=== PATIENT | female | born 1960 | race Caucasian/White ===

== ENCOUNTER → 2016-10-16 | Outpatient (REF) | payer OTHER | LOC: M LAB REF 10:06 | PROVIDERS: ATTEND Physician Assistant | DX: J02.9 Acute pharyngitis, unspecified (principal) ==

== ENCOUNTER 2017-09-07 08:17 | Inpatient (IN) | payer OTHER ==
[2017-09-07] MEDS: methylPREDNISolone INJ 125 MG/2 ML VIAL (J2930) IV (09:00)
[2017-09-07] MEDS: NS 1,000 ML IV (09:00)
[2017-09-07] MEDS: IPRATROPIUM 0.5MG/ALBUTEROL 2.5MG INH SOL UD 3ML (DUONEB)(J7620) NEB ×6 (09:01→21:06)
[2017-09-07 09:02] LABS: ABG BASE EXCESS 0.8 (-2.0-2.0); ABG HCO3 24.5 MEQ/L (22.0-26.0); ABG O2 SATURATION 93.2 % (95.0-99.0); ABG PARTIAL PRESSURE CO2 36.9 mmHg (35.0-45.0); ABG PARTIAL PRESSURE O2 61.5 mmHg (75.0-100.0); ABG TOTAL CO2 25.6 MEQ/L (22.0-29.0)
[2017-09-07 09:13] LABS: BASO % 0.4 % (0.0-1.0); EOS # 0.5 10^3/uL (0.0-0.50); EOS % 5.9 % (0.0-3.0); HEMATOCRIT 50.8 % (36.0-47.0); HEMOGLOBIN 17.7 g/dl (12.0-16.0); IMMATURE GRANULOCYTE % 0.1 % (0-0); LYMPH # 0.9 10^3/uL (1.5-4.5); LYMPH % 11.7 % (24.0-44.0); MEAN CORPUSCULAR HEMOGLOBIN 33.7 pg (27.0-33.0); MEAN CORPUSCULAR HGB CONC 34.8 g/dl (32.0-36.5); MEAN CORPUSCULAR VOLUME 96.8 fl (80.0-96.0); MONO # 0.5 10^3/uL (0.0-0.8); MONO % 6.4 % (0.0-5.0); NEUTROPHILS # 5.7 10^3/uL (1.8-7.7); NEUTROPHILS % 75.5 % (36.0-66.0); PLATELET COUNT, AUTOMATED 198 10^3/uL (150-450); RED BLOOD COUNT 5.25 10^6/uL (4.00-5.40); RED CELL DISTRIBUTION WIDTH 12.7 % (11.5-14.5); WHITE BLOOD COUNT 7.6 10^3/uL (4.0-10.0)
[2017-09-07 09:27] LABS: ALBUMIN 3.8 GM/DL (3.2-5.2); ALBUMIN/GLOBULIN RATIO 1.12 (1.00-1.93); ALKALINE PHOSPHATASE 103 U/L (45-117); ALT/SGPT 18 U/L (12-78); ANION GAP 11 MEQ/L (8-16); AST/SGOT 22 U/L (7-37); BILIRUBIN,DIRECT 0.2 MG/DL (0.0-0.2); BILIRUBIN,TOTAL 0.5 MG/DL (0.2-1.0); BLOOD UREA NITROGEN 5 MG/DL (7-18); CALCIUM LEVEL 8.7 MG/DL (8.5-10.1); CARBON DIOXIDE LEVEL 24 MEQ/L (21-32); CHLORIDE LEVEL 102 MEQ/L (98-107); CPK CREATINE PHOSPHOKINASE 82 U/L (26-192); CREATININE FOR GFR 0.69 MG/DL (0.55-1.02); GLOMERULAR FILTRATION RATE > 60.0 (>51); GLUCOSE, FASTING 104 MG/DL (70-100); POTASSIUM SERUM 3.3 MEQ/L (3.5-5.1); SODIUM LEVEL 137 MEQ/L (136-145); TOTAL PROTEIN 7.2 GM/DL (6.4-8.2); TROPONIN I < 0.02 NG/ML (< 0.10)
[2017-09-07 09:33] LABS: CK-MB VALUE MASS 2.7 NG/ML (0.0-3.6); MB/CK RELATIVE INDEX 3.29 (< OR =4); NT-PRO BNP 86 PG/ML (<125)
[2017-09-07] MEDS: ALBUTEROL SULFATE 2.5 MG/0.5 ML INH NEB SOLN NEB (10:13)
[2017-09-07] MEDS: MOXIFLOXACIN HCL 400 MG in APPROPRIATE DILUENT 1 EA IV (10:47)
[2017-09-07 11:15] LABS: D-DIMER QUANT < 270.0 ng/ml (<500)
[2017-09-07] MEDS ORDERED: ONDANSETRON 4MG/2ML VIAL (J2405) IV (11:45)
[2017-09-07] MEDS ORDERED: LEVALBUTEROL 1.25 MG/0.5 ML CONCENTRATE NEB INH (11:45)
[2017-09-07] MEDS ORDERED: ACETAMINOPHEN TAB 650MG DOSE (2X325MG) PO (11:45)
[2017-09-07] MEDS: POTASSIUM CHLORIDE 10 MEQ SR TABLET PO (12:28)
[2017-09-07] MEDS: POTASSIUM CHL PWD 20 MEQ PACKET PO (13:46)
[2017-09-07] MEDS: NICOTINE 14 MG/24 HR TRANSDERMAL TD (14:00)
[2017-09-07] MEDS ORDERED: INFLUENZA QUADRIVALENT PF VACCINE 0.5ML SYRINGE (90686) IM (14:15)
[2017-09-07 14:46] LABS: CPK CREATINE PHOSPHOKINASE 87 U/L (26-192); MB/CK RELATIVE INDEX 4.59 (< OR =4); TROPONIN I < 0.02 NG/ML (< 0.10)
[2017-09-07] MEDS ORDERED: SLF 3 ML SYR IV (17:00)
[2017-09-07] MEDS: SODIUM CHLORIDE 0.9% 1000 ML IV (19:30)
[2017-09-07] MEDS: methylPREDNISolone INJ 40 MG/1 ML VIAL (J2920) IV (21:00)
[2017-09-07] MEDS: SLF 3 ML SYR IV (21:22)
[2017-09-08 01:34] LABS: TROPONIN I < 0.02 NG/ML (< 0.10)
[2017-09-08 01:37] LABS: CK-MB VALUE MASS 3.4 NG/ML (0.0-3.6); CPK CREATINE PHOSPHOKINASE 80 U/L (26-192); MB/CK RELATIVE INDEX 4.25 (< OR =4)
[2017-09-08] MEDS: SLF 3 ML SYR IV ×3 (05:02→20:38)
[2017-09-08] MEDS: IPRATROPIUM 0.5MG/ALBUTEROL 2.5MG INH SOL UD 3ML (DUONEB)(J7620) NEB ×4 (07:10→20:02)
[2017-09-08 08:27] LABS: BASO % 0.1 % (0.0-1.0); EOS % 0.1 % (0.0-3.0); HEMATOCRIT 43.6 % (36.0-47.0); IMMATURE GRANULOCYTE # 0.1 10^3/uL (0-0); IMMATURE GRANULOCYTE % 0.5 % (0-0); LYMPH % 6.8 % (24.0-44.0); MEAN CORPUSCULAR HEMOGLOBIN 33.6 pg (27.0-33.0); MEAN CORPUSCULAR HGB CONC 33.9 g/dl (32.0-36.5); MEAN CORPUSCULAR VOLUME 98.9 fl (80.0-96.0); MONO # 1.1 10^3/uL (0.0-0.8); MONO % 7.2 % (0.0-5.0); NEUTROPHILS # 12.8 10^3/uL (1.8-7.7); NEUTROPHILS % 85.3 % (36.0-66.0); PLATELET COUNT, AUTOMATED 188 10^3/uL (150-450); RED BLOOD COUNT 4.41 10^6/uL (4.00-5.40); RED CELL DISTRIBUTION WIDTH 13.5 % (11.5-14.5)
[2017-09-08 08:31] LABS: HEMOGLOBIN 14.8 g/dl (12.0-16.0)
[2017-09-08 08:49] LABS: ALBUMIN/GLOBULIN RATIO 0.91 (1.00-1.93); ALKALINE PHOSPHATASE 73 U/L (45-117); ALT/SGPT 13 U/L (12-78); ANION GAP 5 MEQ/L (8-16); AST/SGOT 16 U/L (7-37); BILIRUBIN,TOTAL 0.4 MG/DL (0.2-1.0); BLOOD UREA NITROGEN 10 MG/DL (7-18); CALCIUM LEVEL 8.4 MG/DL (8.5-10.1); CARBON DIOXIDE LEVEL 28 MEQ/L (21-32); CHLORIDE LEVEL 110 MEQ/L (98-107); GLOMERULAR FILTRATION RATE > 60.0 (>51); GLUCOSE, FASTING 105 MG/DL (70-100); POTASSIUM SERUM 3.9 MEQ/L (3.5-5.1); SODIUM LEVEL 143 MEQ/L (136-145); TOTAL PROTEIN 6.3 GM/DL (6.4-8.2)
[2017-09-08] MEDS: ASPIRIN ENTERIC 325 MG TAB PO (09:11)
[2017-09-08] MEDS: methylPREDNISolone INJ 40 MG/1 ML VIAL (J2920) IV ×2 (09:12→20:38)
[2017-09-08] MEDS: ENOXAPARIN 30 MG/0.3 ML SYR (J1650) SC (09:12)
[2017-09-08] MEDS: guaiFENesin ER 600 MG TAB PO ×3 (09:12→20:38)
[2017-09-08] MEDS ORDERED: MOXIFLOXACIN HCL 400 MG in APPROPRIATE DILUENT 1 EA IV (11:00)
[2017-09-08] MEDS: CEFTRIAXONE SOD 1 GM in APPROPRIATE DILUENT 1 EA IV (11:38)
[2017-09-09 04:25] LABS: HEMATOCRIT 43.7 % (36.0-47.0); HEMOGLOBIN 14.4 g/dl (12.0-16.0); PLATELET COUNT, AUTOMATED 182 10^3/uL (150-450); RED BLOOD COUNT 4.37 10^6/uL (4.00-5.40); RED CELL DISTRIBUTION WIDTH 13.6 % (11.5-14.5); WHITE BLOOD COUNT 11.5 10^3/uL (4.0-10.0)
[2017-09-09 04:44] LABS: ANION GAP 5 MEQ/L (8-16); BLOOD UREA NITROGEN 14 MG/DL (7-18); C REACTIVE PROTEIN QUANTITATIV < 0.30 MG/DL (0.00-0.30); CALCIUM LEVEL 8.2 MG/DL (8.5-10.1); CARBON DIOXIDE LEVEL 29 MEQ/L (21-32); CHLORIDE LEVEL 108 MEQ/L (98-107); CREATININE FOR GFR 0.57 MG/DL (0.55-1.02); GLOMERULAR FILTRATION RATE > 60.0 (>51); GLUCOSE, FASTING 119 MG/DL (70-100); POTASSIUM SERUM 4.9 MEQ/L (3.5-5.1); SODIUM LEVEL 142 MEQ/L (136-145)
[2017-09-09] MEDS: SLF 3 ML SYR IV ×3 (05:26→22:00)
[2017-09-09] MEDS: IPRATROPIUM 0.5MG/ALBUTEROL 2.5MG INH SOL UD 3ML (DUONEB)(J7620) NEB ×4 (07:57→20:40)
[2017-09-09] MEDS: ASPIRIN ENTERIC 325 MG TAB PO (09:04)
[2017-09-09] MEDS: guaiFENesin ER 600 MG TAB PO ×2 (09:04→20:32)
[2017-09-09] MEDS: ENOXAPARIN 30 MG/0.3 ML SYR (J1650) SC (09:04)
[2017-09-09] MEDS: methylPREDNISolone INJ 40 MG/1 ML VIAL (J2920) IV (09:04)
[2017-09-09] MEDS ORDERED: MOM 30ML SUSPENSION UDC PO (09:15)
[2017-09-09] MEDS: CEFTRIAXONE SOD 1 GM in APPROPRIATE DILUENT 1 EA IV (10:37)
[2017-09-09] MEDS: predniSONE 20 MG TAB PO (10:38)
[2017-09-09] MEDS: DOCUSATE SODIUM 100 MG CAP PO (10:38)
[2017-09-09] MEDS: NICOTINE 21MG/24HR 1 EA TRANSDERMAL TD (11:17)
[2017-09-10 05:38] LABS: HEMATOCRIT 46.6 % (36.0-47.0); HEMOGLOBIN 15.5 g/dl (12.0-16.0); MEAN CORPUSCULAR HEMOGLOBIN 33.1 pg (27.0-33.0); MEAN CORPUSCULAR HGB CONC 33.3 g/dl (32.0-36.5); MEAN CORPUSCULAR VOLUME 99.6 fl (80.0-96.0); PLATELET COUNT, AUTOMATED 179 10^3/uL (150-450); RED BLOOD COUNT 4.68 10^6/uL (4.00-5.40); RED CELL DISTRIBUTION WIDTH 13.6 % (11.5-14.5); WHITE BLOOD COUNT 9.3 10^3/uL (4.0-10.0)
[2017-09-10 05:56] LABS: ANION GAP 5 MEQ/L (8-16); BLOOD UREA NITROGEN 12 MG/DL (7-18); C REACTIVE PROTEIN QUANTITATIV < 0.30 MG/DL (0.00-0.30); CALCIUM LEVEL 8.4 MG/DL (8.5-10.1); CARBON DIOXIDE LEVEL 27 MEQ/L (21-32); CHLORIDE LEVEL 110 MEQ/L (98-107); CREATININE FOR GFR 0.63 MG/DL (0.55-1.02); GLOMERULAR FILTRATION RATE > 60.0 (>51); GLUCOSE, FASTING 82 MG/DL (70-100); POTASSIUM SERUM 3.9 MEQ/L (3.5-5.1); SODIUM LEVEL 142 MEQ/L (136-145)
[2017-09-10] MEDS: SLF 3 ML SYR IV (06:00)
[2017-09-10] MEDS: IPRATROPIUM 0.5MG/ALBUTEROL 2.5MG INH SOL UD 3ML (DUONEB)(J7620) NEB (07:04)
[2017-09-10] MEDS: ASPIRIN ENTERIC 325 MG TAB PO (07:41)
[2017-09-10] MEDS: CEFUROXIME 500 MG TAB PO (07:41)
[2017-09-10] MEDS: predniSONE 20 MG TAB PO (07:41)
[2017-09-10] MEDS: DOCUSATE SODIUM 100 MG CAP PO (07:41)
[2017-09-10] MEDS: guaiFENesin ER 600 MG TAB PO (07:41)
[2017-09-10] MEDS: NICOTINE 21MG/24HR 1 EA TRANSDERMAL TD (07:42)
[2017-09-10] MEDS: ENOXAPARIN 30 MG/0.3 ML SYR (J1650) SC (07:42)
[2017-09-11 10:06] LABS: FOLATE 3.5 NG/ML (>5.4)
[2017-09-11 10:06] LABS: VITAMIN B12 LEVEL 160 PG/ML (247-911)
== END 2017-09-10 11:59 | disposition home or self-care (01) | DRG 192 ==
LOC: M MSPAV 09-09 15:05 → M ED 08:17 → M ED INP 11:32 → M PCU 16:32
DX: J44.1 Chronic obstructive pulmonary disease with (acute) exacerbation (principal); J44.0 Chronic obstructive pulmonary disease with (acute) lower respiratory infection; J20.9 Acute bronchitis, unspecified; M81.0 Age-related osteoporosis without current pathological fracture; D53.9 Nutritional anemia, unspecified; F17.210 Nicotine dependence, cigarettes, uncomplicated; Z79.82 Long term (current) use of aspirin; Z79.899 Other long term (current) drug therapy; Z88.2 Allergy status to sulfonamides

== ENCOUNTER 2017-10-23 08:27 | Emergency (ER) | payer OTHER ==
[2017-10-23] MEDS: methylPREDNISolone INJ 125 MG/2 ML VIAL (J2930) IV (08:57)
[2017-10-23] MEDS: IPRATROPIUM 0.5MG/ALBUTEROL 2.5MG INH SOL UD 3ML (DUONEB)(J7620) NEB (08:57)
[2017-10-23 09:13] LABS: BASO % 0.3 % (0.0-1.0); EOS # 0.3 10^3/uL (0.0-0.50); EOS % 4.3 % (0.0-3.0); HEMATOCRIT 48.3 % (36.0-47.0); HEMOGLOBIN 16.5 g/dl (12.0-16.0); IMMATURE GRANULOCYTE % 0.4 % (0-3.0); LYMPH # 1.1 10^3/uL (1.5-4.5); LYMPH % 13.9 % (24.0-44.0); MEAN CORPUSCULAR HGB CONC 34.2 g/dl (32.0-36.5); MEAN CORPUSCULAR VOLUME 96.6 fl (80.0-96.0); MONO # 0.6 10^3/uL (0.0-0.8); MONO % 7.8 % (0.0-5.0); NEUTROPHILS # 5.9 10^3/uL (1.8-7.7); NEUTROPHILS % 73.3 % (36.0-66.0); PLATELET COUNT, AUTOMATED 196 10^3/uL (150-450); RED CELL DISTRIBUTION WIDTH 13.7 % (11.5-14.5)
[2017-10-23 09:34] LABS: ANION GAP 9 MEQ/L (8-16); BLOOD UREA NITROGEN 5 MG/DL (7-18); CALCIUM LEVEL 8.8 MG/DL (8.5-10.1); CARBON DIOXIDE LEVEL 29 MEQ/L (21-32); CHLORIDE LEVEL 105 MEQ/L (98-107); CREATININE FOR GFR 0.75 MG/DL (0.55-1.30); GLOMERULAR FILTRATION RATE > 60.0 (>51); GLUCOSE, FASTING 98 MG/DL (70-100); POTASSIUM SERUM 3.2 MEQ/L (3.5-5.1); SODIUM LEVEL 143 MEQ/L (136-145)
[2017-10-23] MEDS ORDERED: ISOVUE-370 76% 100ML VIAL (Q9967) As Ordered (09:34)
[2017-10-23 09:36] LABS: LACTIC ACID SEPSIS PROTOCOL 1.5 MMOL/L (0.4-2.0)
[2017-10-23 09:39] LABS: ALBUMIN 3.4 GM/DL (3.2-5.2); ALBUMIN/GLOBULIN RATIO 0.97 (1.00-1.93); ALKALINE PHOSPHATASE 103 U/L (45-117); ALT/SGPT 16 U/L (12-78); AST/SGOT 19 U/L (7-37); BILIRUBIN,DIRECT 0.2 MG/DL (0.0-0.2); BILIRUBIN,TOTAL 0.6 MG/DL (0.2-1.0); NT-PRO BNP 112 PG/ML (<125); TOTAL PROTEIN 6.9 GM/DL (6.4-8.2)
== END 2017-10-23 11:16 | disposition home or self-care (01) ==
LOC: M ED 08:27
DX: J44.1 Chronic obstructive pulmonary disease with (acute) exacerbation (principal); R91.8 Other nonspecific abnormal finding of lung field; Z79.82 Long term (current) use of aspirin; Z79.899 Other long term (current) drug therapy; Z87.891 Personal history of nicotine dependence; Z88.1 Allergy status to other antibiotic agents; Z88.2 Allergy status to sulfonamides
CPT/HCPCS: Q9967

== ENCOUNTER → 2017-12-13 | Outpatient (CLI) | payer OTHER | LOC: M WUC 09:05 | DX: M79.671 Pain in right foot (principal) | CPT/HCPCS: 73630 ==

== ENCOUNTER → 2018-07-09 | Outpatient (CLI) | payer OTHER ==
[2018-07-09 12:43] LABS: BASO % 0.4 % (0.0-1.0); EOS # 0.1 10^3/uL (0.0-0.50); EOS % 1.8 % (0.0-3.0); HEMATOCRIT 41.9 % (36.0-47.0); HEMOGLOBIN 14.2 g/dl (12.0-15.5); IMMATURE GRANULOCYTE % 0.3 % (0-3.0); LYMPH # 1.4 10^3/uL (1.5-4.5); LYMPH % 18.4 % (24.0-44.0); MEAN CORPUSCULAR HEMOGLOBIN 33.8 pg (27.0-33.0); MEAN CORPUSCULAR HGB CONC 33.9 g/dl (32.0-36.5); MEAN CORPUSCULAR VOLUME 99.8 fl (80.0-96.0); MONO # 0.6 10^3/uL (0.0-0.8); MONO % 7.8 % (0.0-5.0); NEUTROPHILS # 5.4 10^3/uL (1.8-7.7); NEUTROPHILS % 71.3 % (36.0-66.0); PLATELET COUNT, AUTOMATED 210 10^3/uL (150-450); RED CELL DISTRIBUTION WIDTH 13.8 % (11.5-14.5); WHITE BLOOD COUNT 7.6 10^3/uL (4.0-10.0)
[2018-07-09 13:04] LABS: ALBUMIN 3.6 GM/DL (3.2-5.2); ALBUMIN/GLOBULIN RATIO 1.24 (1.00-1.93); ALKALINE PHOSPHATASE 92 U/L (45-117); ALT/SGPT 18 U/L (12-78); ANION GAP 8 MEQ/L (8-16); AST/SGOT 22 U/L (7-37); BILIRUBIN,TOTAL 0.8 MG/DL (0.2-1.0); BLOOD UREA NITROGEN 6 MG/DL (7-18); CALCIUM LEVEL 9.4 MG/DL (8.5-10.1); CARBON DIOXIDE LEVEL 30 MEQ/L (21-32); CHLORIDE LEVEL 104 MEQ/L (98-107); CHOLESTEROL LEVEL 174 MG/DL (<200); CHOLESTEROL RISK RATIO 2.047 (<5); CREATININE FOR GFR 0.73 MG/DL (0.55-1.30); GLOMERULAR FILTRATION RATE > 60.0 (>51); GLUCOSE, FASTING 89 MG/DL (70-100); HDL CHOLESTEROL 85 MG/DL (>40); LDL CHOLESTEROL 72 MG/DL (<100); NON-HDL-C 89 MG/DL; POTASSIUM SERUM 3.6 MEQ/L (3.5-5.1); SODIUM LEVEL 142 MEQ/L (136-145); TOTAL 25(OH) VITAMIN D 44.4 NG/ML (30.0-100.0); TOTAL PROTEIN 6.5 GM/DL (6.4-8.2); TRIGLYCERIDES LEVEL 85 MG/DL (<150)
== END ==
LOC: M WUC 09:53
DX: J44.9 Chronic obstructive pulmonary disease, unspecified (principal); E55.9 Vitamin D deficiency, unspecified; Z13.220 Encounter for screening for lipoid disorders
CPT/HCPCS: 80053

== ENCOUNTER → 2019-01-21 | Outpatient (CLI) | payer OTHER ==
[~2019-01-21] MED LIST: ASPI-1 PO; ASPI-222 PO; CALCTAB74 PO; Cefuroxime Axetil PO; DOXY100C37 PO; FULLMIS XX; IPRA0.00 NEB; NICO21PAT TD; PRED20TA PO; PROAAER10; PROAAER10 INH; SPIR1AER; SPIR1AER INH
[2019-01-21 13:34] LABS: BASO % 0.5 % (0.0-1.0); EOS # 0.2 10^3/uL (0.0-0.50); EOS % 2.3 % (0.0-3.0); HEMATOCRIT 48.8 % (36.0-47.0); HEMOGLOBIN 16.2 g/dl (12.0-15.5); LYMPH # 1.2 10^3/uL (1.5-4.5); LYMPH % 17.9 % (24.0-44.0); MEAN CORPUSCULAR HEMOGLOBIN 34.5 pg (27.0-33.0); MEAN CORPUSCULAR HGB CONC 33.2 g/dl (32.0-36.5); MEAN CORPUSCULAR VOLUME 104.1 fl (80.0-96.0); MONO # 0.5 10^3/uL (0.0-0.8); MONO % 7.4 % (0.0-5.0); NEUTROPHILS # 4.6 10^3/uL (1.8-7.7); NEUTROPHILS % 71.6 % (36.0-66.0); PLATELET COUNT, AUTOMATED 183 10^3/uL (150-450); RED BLOOD COUNT 4.69 10^6/uL (4.00-5.40); WHITE BLOOD COUNT 6.5 10^3/uL (4.0-10.0)
[2019-01-21 13:50] LABS: ALBUMIN 3.3 GM/DL (3.2-5.2); ALT/SGPT 22 U/L (12-78); BILIRUBIN,TOTAL 0.7 MG/DL (0.2-1.0); BLOOD UREA NITROGEN 9 MG/DL (7-18); CALCIUM LEVEL 8.4 MG/DL (8.5-10.1); CARBON DIOXIDE LEVEL 31 MEQ/L (21-32); CHLORIDE LEVEL 104 MEQ/L (98-107); CREATININE FOR GFR 0.66 MG/DL (0.55-1.30); GLOMERULAR FILTRATION RATE > 60.0 (>51); GLUCOSE, FASTING 75 MG/DL (70-100); POTASSIUM SERUM 3.7 MEQ/L (3.5-5.1); SODIUM LEVEL 141 MEQ/L (136-145); TOTAL 25(OH) VITAMIN D 29.5 NG/ML (30.0-100.0); TOTAL PROTEIN 6.4 GM/DL (6.4-8.2)
== END ==
LOC: M WUC 09:25
PROVIDERS: ATTEND Nurse Practitioner Family
DX: J44.9 Chronic obstructive pulmonary disease, unspecified (principal); E55.9 Vitamin D deficiency, unspecified

== ENCOUNTER → 2019-03-26 | Outpatient (CLI) | payer OTHER ==
--- NOTE | 2019-03-27 08:27 | REP ---
REASON: Dyspnea. COMPARISON: 10/23/2017 The lung gerardo are hyperexpanded status quo. No acute patchy parenchymal opacities or pleural effusions have developed. Bilateral upper lobe bullous emphysematous changes are suspected. Since the last examination, multiple left-sided healed rib fractures have developed. The heart is not enlarged. IMPRESSION: Marked chronic lung field changes essentially stable from the latest prior as described above. Electronically Signed by Olvin Norris DO 03/27/2019 09:46 A
== END ==
LOC: M WUC 13:40
PROVIDERS: ATTEND Nurse Practitioner Family
DX: R06.02 Shortness of breath (principal)

== ENCOUNTER 2019-07-08 07:55 | Emergency (ER) | payer OTHER ==
[~2019-07-08 07:55] MED LIST changes: -ASPI-222 PO; +ASPI-527 PO
[2019-07-08] MEDS ORDERED: ARNU1INH3 INH (08:19)
[2019-07-08] MEDS ORDERED: ANOR1AER INH (08:19)
[2019-07-08 08:44] LABS: VENOUS BASE EXCESS 3.5 (-2.0-2.0); VENOUS HCO3 29.8 MEQ/L (23.0-27.0); VENOUS O2 SATURATION 80.8 % (60.0-80.0); VENOUS PARTIAL PRESSURE CO2 50.2 mmHg (38.0-50.0); VENOUS PARTIAL PRESSURE O2 45.2 mmHg (30.0-50.0); VENOUS PH 7.391 UNITS (7.330-7.430); VENOUS STANDARD HCO3 27.1 MEQ/L; VENOUS TOTAL CO2 31.3 MEQ/L (24.0-28.0)
--- NOTE | 2019-07-08 08:46 | REP ---
Clinical: Cough and dyspnea. Comparison: 03/26/2019. Findings: Advanced COPD/emphysematous changes are appreciated. Superimposed right lower lobe atelectasis noted. No obvious effusion. No pneumothorax. Mediastinum and cardiac silhouette stable. Skeletal structures demonstrate age-related osteopenia. Impression: Advanced COPD/emphysematous changes. Subtle right lower lobe atelectasis. Electronically Signed by Gus Bynum MD 07/08/2019 08:37 A
[2019-07-08 08:52] LABS: BASO % 0.2 % (0.0-1.0); EOS # 0.1 10^3/uL (0.0-0.5); EOS % 2.2 % (0.0-3.0); HEMATOCRIT 48.9 % (36.0-47.0); HEMOGLOBIN 16.4 g/dl (12.0-15.5); LYMPH # 0.9 10^3/uL (1.5-5.0); LYMPH % 14.7 % (24.0-44.0); MEAN CORPUSCULAR HEMOGLOBIN 33.9 pg (27.0-33.0); MEAN CORPUSCULAR HGB CONC 33.5 g/dl (32.0-36.5); MONO # 0.7 10^3/uL (0.0-0.8); MONO % 10.8 % (0.0-5.0); NEUTROPHILS # 4.5 10^3/uL (1.5-8.5); NEUTROPHILS % 71.6 % (36.0-66.0); PLATELET COUNT, AUTOMATED 174 10^3/uL (150-450); RED BLOOD COUNT 4.84 10^6/uL (4.00-5.40); WHITE BLOOD COUNT 6.3 10^3/uL (4.0-10.0)
[2019-07-08 08:55] LABS: INR 0.95; PROTHROMBIN TIME 12.4 SECONDS (11.8-14.0)
[2019-07-08 09:28] LABS: ALBUMIN 3.3 GM/DL (3.2-5.2); ALT/SGPT 20 U/L (12-78); BILIRUBIN,DIRECT 0.2 MG/DL (0.0-0.2); BILIRUBIN,TOTAL 0.8 MG/DL (0.2-1.0); BLOOD UREA NITROGEN 6 MG/DL (7-18); CALCIUM LEVEL 9.7 MG/DL (8.5-10.1); CARBON DIOXIDE LEVEL 31 MEQ/L (21-32); CHLORIDE LEVEL 105 MEQ/L (98-107); CK-MB VALUE MASS < 1.0 NG/ML (<3.6); CPK CREATINE PHOSPHOKINASE 61 U/L (26-192); CREATININE FOR GFR 0.75 MG/DL (0.55-1.30); GLOMERULAR FILTRATION RATE > 60.0 (>51); GLUCOSE, FASTING 90 MG/DL (70-100); MB/CK RELATIVE INDEX 1.64 (< OR =4); NT-PRO BNP 76 PG/ML (<125); POTASSIUM SERUM 3.1 MEQ/L (3.5-5.1); SODIUM LEVEL 142 MEQ/L (136-145); TOTAL PROTEIN 7.2 GM/DL (6.4-8.2); TROPONIN I < 0.02 NG/ML (< 0.10)
[2019-07-08] MEDS ORDERED: NS 500 ML IV ONE (09:30)
[2019-07-08] MEDS ORDERED: IPRATROPIUM 0.5MG/ALBUTEROL 2.5MG INH SOL UD 3ML (DUONEB)(J7620) NEB ONE (09:45)
[2019-07-08] MEDS ORDERED: POTASSIUM CHLORIDE 10 MEQ SR TABLET PO ONE (09:45)
[2019-07-08] MEDS ORDERED: LEVA1TAB2 PO (12:16)
[2019-07-08] MEDS ORDERED: PRED20TA PO (12:17)
[2019-07-08] MEDS ORDERED: MUCI60TA7 PO (12:17)
[2019-07-08 12:47] VITALS: BP 120/58
--- NOTE | 2019-07-08 19:31 | ECGEPIP ---
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
== END 2019-07-08 13:00 | disposition home or self-care (01) ==
LOC: M ED 07:55 → EDBD 07:55 → M ED 13:00
DX: J44.1 Chronic obstructive pulmonary disease with (acute) exacerbation (principal); J40 Bronchitis, not specified as acute or chronic; F17.200 Nicotine dependence, unspecified, uncomplicated; Z99.81 Dependence on supplemental oxygen; Z88.2 Allergy status to sulfonamides; Z79.899 Other long term (current) drug therapy; Z79.51 Long term (current) use of inhaled steroids; Z79.82 Long term (current) use of aspirin

== ENCOUNTER 2019-07-18 10:53 | Emergency (ER) | payer OTHER ==
[~2019-07-18] VITALS: Ht 154.9 cm; Wt 47.7 kg
[~2019-07-18 10:53] MED LIST changes: +ANOR1AER INH; +ARNU1INH3 INH; +LEVA1TAB2 PO; +MUCI60TA7 PO
[2019-07-18] MEDS ORDERED: methylPREDNISolone INJ 125 MG/2 ML VIAL (J2930) IV ONE (12:15)
[2019-07-18] MEDS ORDERED: IPRATROPIUM 0.5MG/ALBUTEROL 2.5MG INH SOL UD 3ML (DUONEB)(J7620) NEB ONE (12:15)
[2019-07-18 12:38] LABS: VENOUS BASE EXCESS 5.4 (-2.0-2.0); VENOUS HCO3 31.3 MEQ/L (23.0-27.0); VENOUS O2 SATURATION 85.4 % (60.0-80.0); VENOUS PARTIAL PRESSURE CO2 50.1 mmHg (38.0-50.0); VENOUS PARTIAL PRESSURE O2 49.5 mmHg (30.0-50.0); VENOUS PH 7.414 UNITS (7.330-7.430); VENOUS STANDARD HCO3 28.9 MEQ/L; VENOUS TOTAL CO2 32.9 MEQ/L (24.0-28.0)
[2019-07-18 12:39] LABS: BASO % 0.2 % (0.0-1.0); EOS # 0.2 10^3/uL (0.0-0.5); EOS % 1.6 % (0.0-3.0); HEMATOCRIT 44.4 % (36.0-47.0); HEMOGLOBIN 15.1 g/dl (12.0-15.5); LYMPH # 1.5 10^3/uL (1.5-5.0); LYMPH % 14.1 % (24.0-44.0); MEAN CORPUSCULAR HEMOGLOBIN 33.9 pg (27.0-33.0); MEAN CORPUSCULAR VOLUME 99.8 fl (80.0-96.0); MONO % 9.1 % (0.0-5.0); NEUTROPHILS # 7.8 10^3/uL (1.5-8.5); NEUTROPHILS % 74.5 % (36.0-66.0); PLATELET COUNT, AUTOMATED 171 10^3/uL (150-450); RED BLOOD COUNT 4.45 10^6/uL (4.00-5.40); WHITE BLOOD COUNT 10.5 10^3/uL (4.0-10.0)
--- NOTE | 2019-07-18 12:52 | REP ---
Clinical: Cough and dyspnea. Technique: Portable semiupright view. Comparison: 07/08/2019. Findings: Advanced COPD/emphysematous changes are again appreciated along with bibasilar chronic interstitial changes. No focal consolidation. No effusion. No pneumothorax. Cardiac silhouette is normal. Skeletal structures are intact; old left healed rib fractures noted. Impression: Chronic stable changes. No focal consolidation or effusion. Electronically Signed by Gus Bynum MD 07/18/2019 12:43 P
[2019-07-18 13:04] LABS: INFLUENZA A AMPLIFICATION NEGATIVE (NEGATIVE); INFLUENZA B AMPLIFICATION NEGATIVE (NEGATIVE)
[2019-07-18 14:15] VITALS: BP 129/78
[2019-07-18 14:37] LABS: ALBUMIN 3.1 GM/DL (3.2-5.2); ALT/SGPT 19 U/L (12-78); BILIRUBIN,DIRECT 0.2 MG/DL (0.0-0.2); BILIRUBIN,TOTAL 1.1 MG/DL (0.2-1.0); BLOOD UREA NITROGEN 11 MG/DL (7-18); CARBON DIOXIDE LEVEL 29 MEQ/L (21-32); CHLORIDE LEVEL 105 MEQ/L (98-107); CK-MB VALUE MASS 1.3 NG/ML (<3.6); CPK CREATINE PHOSPHOKINASE 91 U/L (26-192); CREATININE FOR GFR 0.52 MG/DL (0.55-1.30); GLOMERULAR FILTRATION RATE > 60.0 (>51); GLUCOSE, FASTING 93 MG/DL (70-100); MB/CK RELATIVE INDEX 1.43 (< OR =4); NT-PRO BNP 66 PG/ML (<125); POTASSIUM SERUM 4.6 MEQ/L (3.5-5.1); SODIUM LEVEL 140 MEQ/L (136-145); TOTAL PROTEIN 6.3 GM/DL (6.4-8.2); TROPONIN I < 0.02 NG/ML (< 0.10)
[2019-07-18] MEDS ORDERED: PRED10TA2 PO (14:52)
--- NOTE | 2019-07-18 18:14 | ECGEPIP ---
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
== END 2019-07-18 15:09 | disposition home or self-care (01) ==
LOC: M ED 10:53 → EDBD 10:53 → M ED 15:09
DX: J44.1 Chronic obstructive pulmonary disease with (acute) exacerbation (principal); R00.0 Tachycardia, unspecified; R50.9 Fever, unspecified; Z88.2 Allergy status to sulfonamides; Z99.81 Dependence on supplemental oxygen; Z79.899 Other long term (current) drug therapy; Z79.82 Long term (current) use of aspirin; Z79.51 Long term (current) use of inhaled steroids
CPT/HCPCS: 71045; 80048; 80076; 82550; 82553; 82803; 83605; 83880; 84443; 84484; 85025; 87502; 93005; 93041; 94640; 96374; 99285; J2930

== ENCOUNTER 2019-08-13 15:28 | Inpatient (IN) | payer OTHER ==
[~2019-08-13] VITALS: Ht 154.9 cm; Wt 40.6 kg
[~2019-08-13 15:28] MED LIST changes: +PRED10TA2 PO
[2019-08-13] MEDS ORDERED: ALBUTEROL SULFATE 2.5 MG/0.5 ML INH NEB SOLN As Ordered ONE (15:36)
[2019-08-13] MEDS ORDERED: IPRATROPIUM 0.5MG/ALBUTEROL 2.5MG INH SOL UD 3ML (DUONEB)(J7620) As Ordered ONE (15:36)
[2019-08-13] MEDS ORDERED: IPRATROPIUM 0.5MG/ALBUTEROL 2.5MG INH SOL UD 3ML (DUONEB)(J7620) NEB ONE (15:45)
[2019-08-13] MEDS ORDERED: ALBUTEROL SULFATE 2.5 MG/0.5 ML INH NEB SOLN INH ONE (15:45)
[2019-08-13 15:59] LABS: ABG BASE EXCESS 0.6 (-2.0-2.0); ABG HCO3 26.8 MEQ/L (22.0-26.0); ABG O2 SATURATION 99.5 % (95.0-99.0); ABG PARTIAL PRESSURE CO2 48.6 mmHg (35.0-45.0); ABG PARTIAL PRESSURE O2 259.2 mmHg (75.0-100.0); ABG TOTAL CO2 28.3 MEQ/L (22.0-29.0); ABG pH (ARTERIAL) 7.359 UNITS (7.350-7.450)
--- NOTE | 2019-08-13 16:11 | REP ---
Clinical: Cough and dyspnea. Comparison: 07/18/2019. Findings: Mediastinum and cardiac silhouette are stable. Lung gerardo demonstrate stable COPD and chronic interstitial changes. No acute consolidation, effusion, or pneumothorax. Skeletal structures demonstrate osteopenia and degenerative changes. Impression: Chronic stable changes. No focal consolidation. Electronically Signed by Gus Bynum MD 08/13/2019 04:03 P
[2019-08-13 16:18] LABS: BASO % 0.3 % (0.0-1.0); EOS # 0.2 10^3/uL (0.0-0.5); EOS % 2.6 % (0.0-3.0); HEMATOCRIT 47.5 % (36.0-47.0); HEMOGLOBIN 15.9 g/dl (12.0-15.5); LYMPH # 1.3 10^3/uL (1.5-5.0); LYMPH % 21.8 % (24.0-44.0); MEAN CORPUSCULAR HGB CONC 33.5 g/dl (32.0-36.5); MEAN CORPUSCULAR VOLUME 101.7 fl (80.0-96.0); MONO # 0.5 10^3/uL (0.0-0.8); MONO % 8.5 % (0.0-5.0); NEUTROPHILS # 4.1 10^3/uL (1.5-8.5); NEUTROPHILS % 66.5 % (36.0-66.0); PLATELET COUNT, AUTOMATED 175 10^3/uL (150-450); RED BLOOD COUNT 4.67 10^6/uL (4.00-5.40); WHITE BLOOD COUNT 6.2 10^3/uL (4.0-10.0)
[2019-08-13 16:49] LABS: INFLUENZA A AMPLIFICATION NEGATIVE (NEGATIVE); INFLUENZA B AMPLIFICATION NEGATIVE (NEGATIVE)
[2019-08-13 16:58] LABS: INR 0.96; PROTHROMBIN TIME 12.5 SECONDS (11.8-14.0)
[2019-08-13 16:59] LABS: ALBUMIN 3.6 GM/DL (3.2-5.2); ALT/SGPT 15 U/L (12-78); BILIRUBIN,DIRECT 0.3 MG/DL (0.0-0.2); BILIRUBIN,TOTAL 0.8 MG/DL (0.2-1.0); BLOOD UREA NITROGEN 7 MG/DL (7-18); CARBON DIOXIDE LEVEL 29 MEQ/L (21-32); CHLORIDE LEVEL 101 MEQ/L (98-107); CK-MB VALUE MASS 2.6 NG/ML (<3.6); CPK CREATINE PHOSPHOKINASE 61 U/L (26-192); CREATININE FOR GFR 0.64 MG/DL (0.55-1.30); GLOMERULAR FILTRATION RATE > 60.0 (>51); GLUCOSE, FASTING 97 MG/DL (70-100); MB/CK RELATIVE INDEX 4.26 (< OR =4); NT-PRO BNP 108 PG/ML (<125); POTASSIUM SERUM 3.9 MEQ/L (3.5-5.1); SODIUM LEVEL 138 MEQ/L (136-145); TOTAL PROTEIN 6.8 GM/DL (6.4-8.2); TROPONIN I < 0.02 NG/ML (< 0.10)
[2019-08-13] MEDS ORDERED: IPRA0.00 NEB (17:56)
[2019-08-13] MEDS ORDERED: BAYE325T12 PO (17:56)
[2019-08-13] MEDS ORDERED: CALC1TAB74 PO (17:56)
[2019-08-13] MEDS ORDERED: NICO1PAT36 TD (17:56)
[2019-08-13] MEDS ORDERED: NICOTINE 7 MG/24 HR TRANSDERMAL TD ONE (18:00)
[2019-08-13] MEDS: methylPREDNISolone INJ 40 MG/1 ML VIAL (J2920) IV SCH (18:19)
--- NOTE | 2019-08-13 18:21 | HPEPDOC ---
General Date of Admission 08/13/19 Date of Service: Aug 13, 2019 Chief Complaint The patient is a 59-year-old female admitted with a reason for visit of Respiratory Distress. History of Present Illness 59 year old female with PMH of Chronic Hypoxic respiratory failure, Chronic ob structive pulmonary disease (COPD), Ongoing tobacco use, Osteoporosis, Kyphosis Presented to the ED with worsening shortness of breath for 3 days which became very bad today and she could not talk and was gasping for breath so called the EMS. On arrival to [facility] ED she was in extremis needing oxygen through non rebreather, tachycardic to 128, tachypneic to 28. She was diagnosed with acute on chronic hypoxic respiratory failure due to COPD exacerbation. She received 6 nebulizers and then started feeling better. On my interview she was sitting up in bed able to talk in full sentences on 2 liter nasal canula oxygen. she still remained tachycardic to 125. She did say that her breathing was much better. She denied having any cough or cold or cnasal congestion. She denied any sick contact. She does have some caugh with small amouts of phlegm production but not any worse than usual. She says she does not have a PMD at the moment. She used to follow with Seth Ellison but he retired to she has a appointment with a new PM D in sep . Karly sue. Home Medications Scheduled Aspirin (Aspirin) 325 Mg Tablet, 325 MG PO DAILY, (Reported) Calcium Carbonate/Vitamin D3 (Calcium 600-Vit D3 400 Tablet) 1 Each Tablet, 1 TAB PO DAILY, (Reported) Fluticasone Furoate (Arnuity Ellipta) 200 Mcg Blst.w.dev, 1 PUFF INH DAILY, (Reported) Ipratropium/Albuterol Sulfate (Iprat-Albut 0.5-3(2.5) mg/3 ml) 3 Ml Ampul.neb, 1 VIAL NEB BID, (Reported) Nicotine (Nicotine Patch) 14 Mg/24 Hr Patch.td24, 14 MG TD DAILY, (Reported) Umeclidinium Brm/Vilanterol Tr (Anoro Ellipta 62.5-25 Mcg INH) 1 Each Blst .w.dev, 1 PUFF INH DAILY, (Reported) Allergies Coded Allergies: Sulfa (Sulfonamide Antibiotics) (Verified Adverse Reaction, Intermediate, VOMITING, 08/13/19) Past Medical History Medical History Chronic Hypoxic respiratory failure Chronic obstructive pulmonary disease (COPD). Ongoing tobacco use. Osteoporosis. Surgical History 1. Tubal ligation. 2. Hysterectomy. 3. left breat benign breast lump removal Family History Significant Family History: Cancer (brother lung cancer), COPD (mother) Social History * Smoker: current smoker Alcohol: Denies Drugs: denies A-FIB/CHADSVASC A-FIB History Current/History of A-Fib/PAF?: No Review of Systems Constitutional: Denies: Chills, Fever, Night Sweats Eyes: Denies: Pain, Vision change ENT: Denies: Head Aches, Ear Pain, Dysphagia Skin: Denies: Rash, Lesions, Breakdown Pulmonary: Reports: Dyspnea, Cough Cardiovascular: Denies: Chest Pain, Palpitations, Orthopnea, Paroxysmal Noc. Dyspnea, Lt Headedness Gastrointestinal: Denies: Nausea, Vomiting, Abdominal Pain, Diarrhea Genitourinary: Denies: Dysuria, Frequency, Incontinence, Retention Hematologic: Denies: Bruising, Bleeding Excessively Musculoskeletal: Reports: Neck Pain, Back Pain Physical Examination General Exam: Positive: Alert, Cooperative, No Acute Distress Eye Exam: Positive: PERRLA, Conjunctiva & lids normal, EOMI; Negative: Sclera icteric ENT Exam: Positive: Atraumatic, Mucous membr. moist/pink, Pharynx Normal Neck Exam: Positive: Supple; Negative: JVD, thyromegaly Chest Exam: Positive: Diminished (with scattered crackles), Other (Kyphotic) Heart Exam: Positive: Tachycardic, Regular Rhythm, Normal S1, Normal S2; Negative: Gallops, Murmurs, Rubs Telemetry: Positive: Sinus, Tachycardia Abdomen Exam: Positive: Normal bowel sounds, Soft; Negative: Tenderness, Hepatospenomegaly Extremity Exam: Negative: Cyanosis, Edema Skin Exam: Positive: Nl turgor and temperature; Negative: Breakdown, Lesion Neuro Exam: Positive: Normal Gait, Normal Speech, Normal Tone, Cranial Nerves 3-12 NL Psych Exam: Positive: Memory Intact, Oriented x 3 Vital Signs Vital Signs Date Time Temp Pulse Resp B/P (MAP) Pulse Ox O2 Delivery O2 Flow Rate FiO2 08/13/19 16:34 132 20 08/13/19 16:20 95 Nasal Cannula 2.0 12/31/19 16:09 98.0 08/13/19 15:50 108/69 (82) Laboratory Data Labs 24H Laboratory Tests 2 08/13/19 15:28: Blood Gas Bicarbonate Standard 25.0, Arterial Blood pH 7.359, Arterial Blood Partial Pressure CO2 48.6H, Arterial Blood Partial Pressure O2 259.2H, Arterial Blood Total CO2 28.3, Arterial Blood HCO3 26.8H, Arterial Blood Base Excess 0.6, Arterial Blood Oxygen Saturation 99.5H 08/13/19 16:01: CBC/BMP Microbiology Microbiology 08/13/19 Blood Culture, Received Pending Assessment/Plan 59 year old female with PMH of Chronic Hypoxic respiratory failure, Chronic obstructive pulmonary disease (COPD), Ongoing tobacco use, Osteoporosis, Kyphosis Presented to the ED with worsening shortness of breath for 3 days which became very bad today and she could not talk and was gasping for breath so called the EMS. On arrival to the ED she was in extremis needing oxygen through non rebreather, tachycardic to 128, tachypneic to 28. She was diagnosed with acute on chronic hypoxic respiratory failure due to COPD exacerbation. Acute on chronic respiratory failure with hypoxia continue treatment for copd continue oxygen supplementation Patient is DNR and DNI however she is OK with a trial of BIPAP if needed. COPD exacerbation continue formoterol, budesonide, duonebs, methyl pred and azithromycin. Tobacco use nicotine patch. Sinus tachycardia due to respiratory distress Plan / VTE VTE Prophylaxis Ordered?: Yes JOHNATHON DYER MD Aug 13, 2019 16:50
[2019-08-13 18:30] VITALS: BP 128/70
[2019-08-13 20:00] VITALS: BP 125/66
[2019-08-13] MEDS: FORMOTEROL FUMARATE 20 MCG/2 ML INHALATION SOLUTION (PERFOROMIST) INH SCH (21:00)
[2019-08-13] MEDS: BUDESONIDE 0.5 MG/2 ML INHALATION SUSPENSION INH SCH (21:00)
[2019-08-13] MEDS: IPRATROPIUM 0.5MG/ALBUTEROL 2.5MG INH SOL UD 3ML (DUONEB)(J7620) NEB SCH ×2 (21:01→23:39)
[2019-08-13] MEDS: AZITHROMYCIN 250 MG TAB PO SCH (21:31)
[2019-08-13] MEDS: ENOXAPARIN 40 MG/0.4 ML SYRINGE (J1650) SC SCH (21:32)
[2019-08-14] VITALS: BP 119/69
[2019-08-14 04:00] VITALS: BP 117/71
[2019-08-14] MEDS: IPRATROPIUM 0.5MG/ALBUTEROL 2.5MG INH SOL UD 3ML (DUONEB)(J7620) NEB SCH ×5 (04:14→20:00)
[2019-08-14 05:26] LABS: ABG BASE EXCESS 2.7 (-2.0-2.0); ABG HCO3 27.8 MEQ/L (22.0-26.0); ABG O2 SATURATION 95.9 % (95.0-99.0); ABG PARTIAL PRESSURE CO2 44.6 mmHg (35.0-45.0); ABG PARTIAL PRESSURE O2 78.6 mmHg (75.0-100.0); ABG STANDARD HCO3 26.8 MEQ/L (22.0-26.0); ABG TOTAL CO2 29.2 MEQ/L (22.0-29.0); ABG pH (ARTERIAL) 7.413 UNITS (7.350-7.450)
[2019-08-14] MEDS: methylPREDNISolone INJ 40 MG/1 ML VIAL (J2920) IV SCH ×4 (06:05→18:20)
[2019-08-14] MEDS: FORMOTEROL FUMARATE 20 MCG/2 ML INHALATION SOLUTION (PERFOROMIST) INH SCH ×2 (07:16→19:51)
[2019-08-14] MEDS: BUDESONIDE 0.5 MG/2 ML INHALATION SUSPENSION INH SCH ×2 (07:16→19:51)
[2019-08-14 07:24] LABS: HEMATOCRIT 42.6 % (36.0-47.0); HEMOGLOBIN 14.4 g/dl (12.0-15.5); LYMPH # 0.5 10^3/uL (1.5-5.0); LYMPH % 8.4 % (24.0-44.0); MEAN CORPUSCULAR HEMOGLOBIN 33.7 pg (27.0-33.0); MEAN CORPUSCULAR HGB CONC 33.8 g/dl (32.0-36.5); MEAN CORPUSCULAR VOLUME 99.8 fl (80.0-96.0); MONO # 0.1 10^3/uL (0.0-0.8); MONO % 1.3 % (0.0-5.0); NEUTROPHILS # 4.8 10^3/uL (1.5-8.5); NEUTROPHILS % 89.9 % (36.0-66.0); PLATELET COUNT, AUTOMATED 176 10^3/uL (150-450); RED BLOOD COUNT 4.27 10^6/uL (4.00-5.40); WHITE BLOOD COUNT 5.3 10^3/uL (4.0-10.0)
[2019-08-14 07:48] LABS: BLOOD UREA NITROGEN 14 MG/DL (7-18); CALCIUM LEVEL 9.1 MG/DL (8.5-10.1); CARBON DIOXIDE LEVEL 26 MEQ/L (21-32); CHLORIDE LEVEL 105 MEQ/L (98-107); CREATININE FOR GFR 0.51 MG/DL (0.55-1.30); GLOMERULAR FILTRATION RATE > 60.0 (>51); GLUCOSE, FASTING 116 MG/DL (70-100); SODIUM LEVEL 140 MEQ/L (136-145)
--- NOTE | 2019-08-14 07:52 | ECGEPIP ---
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
[2019-08-14 08:00] VITALS: BP 135/65
--- NOTE | 2019-08-14 08:13 | IPNPDOC ---
Subjective Date Seen The patient was seen on 08/14/19. Subjective Chief Complaint/HPI Said slept well last night. Much better than what she was doing at home. She normally sleeps in the recliner. Complains of her back hurting. SHe still has SOB which worsens with episodes of coughing. No phlegm production. She says that the breathing has been bad for the past 2 months . Says it staarted when she went out sovelling the snow without oxygen back in June 2019 when the first snow fell. Since then she says her breathing has never really been back to baseline. Objective Physical Examination General Exam: Positive: Alert, Cooperative, No Acute Distress Eye Exam: Positive: PERRLA, Conjunctiva & lids normal, EOMI; Negative: Sclera icteric ENT Exam: Positive: Atraumatic, Mucous membr. moist/pink, Pharynx Normal Neck Exam: Positive: Supple; Negative: JVD, thyromegaly Chest Exam: Positive: Diminished (with scattered crackles), Other (Kyphotic, few scattered crackles. ) Heart Exam: Positive: Tachycardic, Regular Rhythm, Normal S1, Normal S2; Negative: Gallops, Murmurs, Rubs Telemetry: Positive: Sinus, Tachycardia Abdomen Exam: Positive: Normal bowel sounds, Soft; Negative: Tenderness, Hepatospenomegaly Extremity Exam: Negative: Cyanosis, Edema Skin Exam: Positive: Nl turgor and temperature; Negative: Breakdown, Lesion Neuro Exam: Positive: Normal Gait, Normal Speech, Normal Tone, Cranial Nerves 3-12 NL Psych Exam: Positive: Memory Intact, Oriented x 3 Assessment /Plan Assessment 59 year old female with PMH of Chronic Hypoxic respiratory failure, Chronic obstructive pulmonary disease (COPD), Ongoing tobacco use, Osteoporosis, Kyphosis Presented to the ED with worsening shortness of breath for 3 days which became very bad today and she could not talk and was gasping for breath so called the EMS. On arrival to the ED she was in extremis needing oxygen through non rebreather, tachycardic to 128, tachypneic to 28. She was diagnosed with acute on chronic hypoxic respiratory failure due to COPD exacerbation. Acute on chronic respiratory failure with hypoxia continue treatment for copd continue oxygen supplementation Patient is DNR and DNI however she is OK with a trial of BIPAP if needed. Follows with Dr Oseguera COPD exacerbation continue formoterol, budesonide, duonebs, methyl pred and azithromycin. Tobacco use nicotine patch. Sinus tachycardia due to advanced COPD with exacerbation physiological response to respiratory distress. Plan/VTE VTE Prophylaxis Ordered?: Yes VS, I&O, 24H, Fishbone Vital Signs/I&O Vital Signs Date Time Temp Pulse Resp B/P (MAP) Pulse Ox O2 Delivery O2 Flow Rate FiO2 08/14/19 07:18 Nasal Cannula 2.0 08/14/19 04:00 97.6 109 17 117/71 (86) 94 I&O- Last 24 Hours up to 6 AM 08/14/19 05:59 Intake Total 240 ml Output Total 350 ml Balance -110 ml Laboratory Data 24H LABS Laboratory Tests 2 08/13/19 15:28: Blood Gas Bicarbonate Standard 25.0, Arterial Blood pH 7.359, Arterial Blood Partial Pressure CO2 48.6H, Arterial Blood Partial Pressure O2 259.2H, Arterial Blood Total CO2 28.3, Arterial Blood HCO3 26.8H, Arterial Blood Base Excess 0.6, Arterial Blood Oxygen Saturation 99.5H 08/13/19 16:01: Immature Granulocyte % (Auto) 0.3, Neutrophils (%) (Auto) 66.5H, Lymphocytes (%) (Auto) 21.8L, Monocytes (%) (Auto) 8.5H, Eosinophils (%) (Auto) 2.6, Basophils (%) (Auto) 0.3, Neutrophils # (Auto) 4.1, Lymphocytes # (Auto) 1.3L, Monocytes # (Auto) 0.5, Eosinophils # (Auto) 0.2, Basophils # (Auto) 0.0, Nucleated Red Blood Cells % (auto) 0.0, Prothrombin Time 12.5, Prothromb Time International Ratio 0.96, Anion Gap 8, Glomerular Filtration Rate > 60.0, Lactic Acid Level 1.4, Calcium Level 9.0, Total Bilirubin 0.8, Direct Bilirubin 0.3H, Aspartate Amino Transf (AST/SGOT) 21, Alanine Aminotransferase (ALT/SGPT) 15, Alkaline Phosphatase 136H, Total Creatine Kinase 61, Creatine Kinase MB 2.6, Creatine Kinase MB Relative Index 4.26H, Troponin I < 0.02, OF-Rxv-U-Type Natriuretic Peptide 108, Total Protein 6.8, Albumin 3.6, Albumin/Globulin Ratio 1.13, Thyroid Stimulating Hormone (TSH) 1.580, Influenza Type A (RT-PCR) NEGATIVE, Influenza Type B (RT-PCR) NEGATIVE 08/14/19 05:05: Blood Gas Bicarbonate Standard 26.8H, Arterial Blood pH 7.413, Arterial Blood Partial Pressure CO2 44.6, Arterial Blood Partial Pressure O2 78.6, Arterial Blood Total CO2 29.2H, Arterial Blood HCO3 27.8H, Arterial Blood Base Excess 2.7H, Arterial Blood Oxygen Saturation 95.9 08/14/19 06:32: Immature Granulocyte % (Auto) 0.4, Neutrophils (%) (Auto) 89.9H, Lymphocytes (%) (Auto) 8.4L, Monocytes (%) (Auto) 1.3, Eosinophils (%) (Auto) 0.0, Basophils (%) (Auto) 0.0, Neutrophils # (Auto) 4.8, Lymphocytes # (Auto) 0.5L, Monocytes # (Auto) 0.1, Eosinophils # (Auto) 0.0, Basophils # (Auto) 0.0, Nucleated Red Blood Cells % (auto) 0.0, Anion Gap 9, Glomerular Filtration Rate > 60.0, Calcium Level 9.1 CBC/BMP Laboratory Tests 08/13/19 16:01 08/14/19 06:32 Microbiology Microbiology 08/13/19 Blood Culture, Received Pending 08/13/19 Blood Culture, Received Pending JOHNATHON DYER MD Aug 14, 2019 08:13
[2019-08-14 12:00] VITALS: BP 136/85
[2019-08-14 16:00] VITALS: BP 121/83
[2019-08-14] MEDS ORDERED: SLF 3 ML SYR IV PRN (17:15)
[2019-08-14 20:00] VITALS: BP 131/78
[2019-08-14] MEDS: AZITHROMYCIN 250 MG TAB PO SCH (21:03)
[2019-08-14] MEDS: SLF 3 ML SYR IV SCH (21:04)
[2019-08-14] MEDS: ENOXAPARIN 40 MG/0.4 ML SYRINGE (J1650) SC SCH (21:04)
[2019-08-14] MEDS ORDERED: CEPACOL LOZENGE PO PRN (21:30)
[2019-08-14] MEDS: ACETAMINOPHEN TAB 650MG DOSE (2X325MG) PO PRN (21:41)
[2019-08-15] MEDS: methylPREDNISolone INJ 40 MG/1 ML VIAL (J2920) IV SCH ×4 (00:22→17:26)
[2019-08-15 00:55] VITALS: BP 144/80
[2019-08-15] MEDS ORDERED: IPRATROPIUM 0.5MG/ALBUTEROL 2.5MG INH SOL UD 3ML (DUONEB)(J7620) NEB PRN (01:15)
[2019-08-15] MEDS: ACETAMINOPHEN TAB 650MG DOSE (2X325MG) PO PRN ×3 (02:05→20:36)
[2019-08-15] MEDS ORDERED: RAMELTEON 8 MG TAB (ROZEREM) PO ONE (02:40)
[2019-08-15] MEDS ORDERED: LEVALBUTEROL 1.25 MG/0.5 ML CONCENTRATE NEB INH PRN (03:00)
[2019-08-15] MEDS: IPRATROPIUM 0.5MG/ALBUTEROL 2.5MG INH SOL UD 3ML (DUONEB)(J7620) NEB SCH ×7 (04:38→23:10)
[2019-08-15 06:00] VITALS: BP 149/83
[2019-08-15 06:27] LABS: BASO % 0.1 % (0.0-1.0); HEMATOCRIT 44.4 % (36.0-47.0); HEMOGLOBIN 14.4 g/dl (12.0-15.5); LYMPH # 0.4 10^3/uL (1.5-5.0); LYMPH % 2.5 % (24.0-44.0); MEAN CORPUSCULAR HEMOGLOBIN 33.3 pg (27.0-33.0); MEAN CORPUSCULAR HGB CONC 32.4 g/dl (32.0-36.5); MEAN CORPUSCULAR VOLUME 102.8 fl (80.0-96.0); MONO # 0.3 10^3/uL (0.0-0.8); MONO % 1.6 % (0.0-5.0); NEUTROPHILS # 15.4 10^3/uL (1.5-8.5); NEUTROPHILS % 95.2 % (36.0-66.0); PLATELET COUNT, AUTOMATED 170 10^3/uL (150-450); RED BLOOD COUNT 4.32 10^6/uL (4.00-5.40); WHITE BLOOD COUNT 16.2 10^3/uL (4.0-10.0)
[2019-08-15] MEDS: SLF 3 ML SYR IV SCH ×3 (06:55→20:37)
[2019-08-15 07:00] LABS: BLOOD UREA NITROGEN 21 MG/DL (7-18); CALCIUM LEVEL 8.9 MG/DL (8.5-10.1); CARBON DIOXIDE LEVEL 28 MEQ/L (21-32); CHLORIDE LEVEL 105 MEQ/L (98-107); CREATININE FOR GFR 0.64 MG/DL (0.55-1.30); GLOMERULAR FILTRATION RATE > 60.0 (>51); GLUCOSE, FASTING 124 MG/DL (70-100); POTASSIUM SERUM 4.3 MEQ/L (3.5-5.1); SODIUM LEVEL 140 MEQ/L (136-145)
[2019-08-15] MEDS: FORMOTEROL FUMARATE 20 MCG/2 ML INHALATION SOLUTION (PERFOROMIST) INH SCH ×2 (07:28→19:24)
[2019-08-15] MEDS: BUDESONIDE 0.5 MG/2 ML INHALATION SUSPENSION INH SCH ×2 (07:29→19:24)
--- NOTE | 2019-08-15 11:48 | IPNPDOC ---
Subjective Date Seen The patient was seen on 08/15/19. Subjective Chief Complaint/HPI Says no improvement in breathing yet. Though does say it does not heart as much at the back to cough. was on 3 liters overnight , now reduced to 2 liters. Objective Physical Examination General Exam: Positive: Alert, Cooperative, No Acute Distress Eye Exam: Positive: PERRLA, Conjunctiva & lids normal, EOMI; Negative: Sclera icteric ENT Exam: Positive: Atraumatic, Mucous membr. moist/pink, Pharynx Normal Neck Exam: Positive: Supple; Negative: JVD, thyromegaly Chest Exam: Positive: Diminished (with scattered crackles), Other (Kyphotic, few scattered crackles. ) Heart Exam: Positive: Tachycardic, Regular Rhythm, Normal S1, Normal S2; Negative: Gallops, Murmurs, Rubs Telemetry: Positive: Sinus, Tachycardia Abdomen Exam: Positive: Normal bowel sounds, Soft; Negative: Tenderness, Hepatospenomegaly Extremity Exam: Negative: Cyanosis, Edema Skin Exam: Positive: Nl turgor and temperature; Negative: Breakdown, Lesion Neuro Exam: Positive: Normal Gait, Normal Speech, Normal Tone, Cranial Nerves 3-12 NL Psych Exam: Positive: Memory Intact, Oriented x 3 Assessment /Plan Assessment 59 year old female with PMH of Chronic Hypoxic respiratory failure, Chronic obstructive pulmonary disease (COPD), Ongoing tobacco use, Osteoporosis, Kyphosis Presented to the ED with worsening shortness of breath for 3 days which became very bad today and she could not talk and was gasping for breath so called the EMS. On arrival to the ED she was in extremis needing oxygen through non rebreather, tachycardic to 128, tachypneic to 28. She was diagnosed with acute on chronic hypoxic respiratory failure due to COPD exacerbation. Acute on chronic respiratory failure with hypoxia continue treatment for copd continue oxygen supplementation Patient is DNR and DNI however she is OK with a trial of BIPAP if needed. Follows with Dr Oseguera COPD exacerbation continue formoterol, budesonide, duonebs, methyl pred and azithromycin. Back pain continues to be a problem going on for perez past 1 month has severe pain when she coughs so coughing has been difficult will get xrays She does have features of osteopenia and osteoporosis in the skeletal structures. Tobacco use nicotine patch. Sinus tachycardia due to advanced COPD with exacerbation physiological response to respiratory distress. Plan/VTE VTE Prophylaxis Ordered?: Yes VS, I&O, 24H, Fishbone Vital Signs/I&O Vital Signs Date Time Temp Pulse Resp B/P (MAP) Pulse Ox O2 Delivery O2 Flow Rate FiO2 08/15/19 08:00 2.0 08/15/19 06:00 98.0 99 21 149/83 (105) 93 Nasal Cannula I&O- Last 24 Hours up to 6 AM 08/15/19 06:00 Intake Total 630 ml Output Total 200 ml Balance 430 ml Laboratory Data 24H LABS Laboratory Tests 2 08/15/19 06:15: Immature Granulocyte % (Auto) 0.6, Neutrophils (%) (Auto) 95.2H, Lymphocytes (%) (Auto) 2.5L, Monocytes (%) (Auto) 1.6, Eosinophils (%) (Auto) 0.0, Basophils (%) (Auto) 0.1, Neutrophils # (Auto) 15.4H, Lymphocytes # (Auto) 0.4L, Monocytes # (Auto) 0.3, Eosinophils # (Auto) 0.0, Basophils # (Auto) 0.0, Nucleated Red Blood Cells % (auto) 0.0, Anion Gap 7L, Glomerular Filtration Rate > 60.0, Calcium Level 8.9 CBC/BMP Laboratory Tests 08/15/19 06:15 Microbiology Microbiology 08/13/19 Blood Culture - Preliminary, Resulted No growth after 24 hours . All specim... 08/13/19 Blood Culture - Preliminary, Resulted No growth after 24 hours . All specim... JOHNATHON DYER MD Aug 15, 2019 11:46
[2019-08-15 14:00] VITALS: BP 138/75
--- NOTE | 2019-08-15 14:28 | REP ---
Clinical: Severe back pain. Technique: AP, lateral, bilateral oblique and coned-down views of the lumbosacral spine. Findings: Osteopenia is suggested. Alignment and lordosis maintained. No acute fracture / compression injury or subluxation. No overt degenerative disc osteophyte complexes are appreciated. Impression: Osteopenia and age-related changes. No acute fracture / compression injury or subluxation. Electronically Signed by Gus Bynum MD 08/15/2019 02:19 P
--- NOTE | 2019-08-15 14:31 | REP ---
Clinical: Thoracic back pain. Technique: AP, lateral, swimmers views of the thoracic spine. Findings: Comparison is made to 03/26/2019 and a relatively new compression fracture is identified in the mid thoracic spine. Impression: Compression fracture of mid thoracic vertebral body relatively new when compared to 03/26/2019. Electronically Signed by Gus Bynum MD 08/15/2019 02:22 P
[2019-08-15] MEDS: NICOTINE 7 MG/24 HR TRANSDERMAL TD SCH (17:26)
[2019-08-15] MEDS: ENOXAPARIN 40 MG/0.4 ML SYRINGE (J1650) SC SCH (20:36)
[2019-08-15] MEDS: AZITHROMYCIN 250 MG TAB PO SCH (20:36)
[2019-08-15 22:00] VITALS: BP 152/88
[2019-08-16] MEDS: methylPREDNISolone INJ 40 MG/1 ML VIAL (J2920) IV SCH ×2 (00:26→05:24)
[2019-08-16] MEDS: IPRATROPIUM 0.5MG/ALBUTEROL 2.5MG INH SOL UD 3ML (DUONEB)(J7620) NEB SCH ×2 (04:00→07:40)
[2019-08-16] MEDS: SLF 3 ML SYR IV SCH (05:24)
[2019-08-16 06:00] VITALS: BP 112/70
[2019-08-16 06:03] LABS: BASO % 0.1 % (0.0-1.0); HEMATOCRIT 43.6 % (36.0-47.0); HEMOGLOBIN 13.9 g/dl (12.0-15.5); LYMPH # 0.4 10^3/uL (1.5-5.0); LYMPH % 3.8 % (24.0-44.0); MEAN CORPUSCULAR HEMOGLOBIN 32.9 pg (27.0-33.0); MEAN CORPUSCULAR HGB CONC 31.9 g/dl (32.0-36.5); MEAN CORPUSCULAR VOLUME 103.3 fl (80.0-96.0); MONO # 0.2 10^3/uL (0.0-0.8); MONO % 2.1 % (0.0-5.0); NEUTROPHILS # 10.5 10^3/uL (1.5-8.5); NEUTROPHILS % 93.3 % (36.0-66.0); PLATELET COUNT, AUTOMATED 180 10^3/uL (150-450); RED BLOOD COUNT 4.22 10^6/uL (4.00-5.40); WHITE BLOOD COUNT 11.2 10^3/uL (4.0-10.0)
[2019-08-16 06:30] LABS: BLOOD UREA NITROGEN 20 MG/DL (7-18); CALCIUM LEVEL 8.7 MG/DL (8.5-10.1); CARBON DIOXIDE LEVEL 29 MEQ/L (21-32); CHLORIDE LEVEL 105 MEQ/L (98-107); CREATININE FOR GFR 0.56 MG/DL (0.55-1.30); GLOMERULAR FILTRATION RATE > 60.0 (>51); GLUCOSE, FASTING 113 MG/DL (70-100); POTASSIUM SERUM 4.4 MEQ/L (3.5-5.1); SODIUM LEVEL 140 MEQ/L (136-145)
[2019-08-16] MEDS: FORMOTEROL FUMARATE 20 MCG/2 ML INHALATION SOLUTION (PERFOROMIST) INH SCH (07:40)
[2019-08-16] MEDS: BUDESONIDE 0.5 MG/2 ML INHALATION SUSPENSION INH SCH (07:40)
[2019-08-16] MEDS: NICOTINE 7 MG/24 HR TRANSDERMAL TD SCH (08:35)
[2019-08-16] MEDS: ACETAMINOPHEN TAB 650MG DOSE (2X325MG) PO PRN (08:36)
[2019-08-16] MEDS ORDERED: DICLOFENAC EPOLAMINE 1.3 % PATCH TOP SCH (09:00)
[2019-08-16] MEDS ORDERED: NICOTINE 7 MG/24 HR TRANSDERMAL TD SCH (09:00)
[2019-08-16] MEDS ORDERED: AZIT-12 PO (10:06)
[2019-08-16] MEDS ORDERED: DICL1PAT TOP (10:06)
[2019-08-16] MEDS ORDERED: IPRA0.00 NEB (10:06)
[2019-08-16] MEDS ORDERED: PRED10TA2 PO (10:06)
[2019-08-16] MEDS ORDERED: SORE15LO PO (10:06)
--- NOTE | 2019-08-16 11:37 | DS.PDOC ---
Discharge Summary General Date of Admission Aug 13, 2019 at 17:31 Date of Discharge 08/16/19 Discharge Summary PROCEDURES PERFORMED DURING STAY: [None]. DISCHARGE DIAGNOSES: Acute on chronic respiratory failure with hypoxia COPD exacerbation Mid thoracic vertebral body compression fracture new from 03/2019 Sinus tachycardia SECONDARY DIAGNOSIS: Chronic Hypoxic respiratory failure, Chronic obstructive pulmonary disease (COPD), Emphysema Ongoing tobacco use, Osteoporosis, Kyphosis , osteoporosis, osteopenia COMPLICATIONS/CHIEF COMPLAINT: Copd Exacerbation. HISTORY OF PRESENT ILLNESS: See history and physical HOSPITAL COURSE: 59 year old female with PMH of Chronic Hypoxic respiratory failure, Chronic obstructive pulmonary disease (COPD), Ongoing tobacco use, Osteoporosis, Kyphosis Presented to the ED with worsening shortness of breath for 3 days which became very bad today and she could not talk and was gasping for breath so called the EMS. On arrival to the ED she was in extremis needing oxygen through non rebreather, tachycardic to 128, tachypneic to 28. She was diagnosed with acute on chronic hypoxic respiratory failure due to COPD exacerbation. Acute on chronic respiratory failure with hypoxia continue treatment for copd continue oxygen supplementation Patient is DNR and DNI however she is OK with a trial of BIPAP if needed. Follows with Dr Oseguera COPD exacerbation continue own inhalors duonebs, prednisone taper and azithromycin. advised to use oxygen when going out into community consistently Subacute thoracic vertebral compression fracture. Back pain since June. osteopenia and osteoporosis in the skeletal structures. continue diclofenac patch. Tylenol prn. Tobacco use discussed about smoking cessation. Says she is down to 5 pffs / day. Sinus tachycardia due to advanced COPD with exacerbation physiological response to respiratory distress. DISCHARGE MEDICATIONS: Please see below. ALLERGIES: Please see below. PHYSICAL EXAMINATION ON DISCHARGE: VITAL SIGNS: Please see below. General Exam: Positive: Alert, Cooperative, No Acute Distress Eye Exam: Positive: PERRLA, Conjunctiva & lids normal, EOMI; Negative: Sclera icteric ENT Exam: Positive: Atraumatic, Mucous membr. moist/pink, Pharynx Normal Neck Exam: Positive: Supple; Negative: JVD, thyromegaly Chest Exam: Positive: Diminished (with scattered crackles), Other (Kyphotic, few scattered crackles. ) Heart Exam: Positive: Tachycardic, Regular Rhythm, Normal S1, Normal S2; Negative: Gallops, Murmurs, Rubs Telemetry: Positive: Sinus, Tachycardia Abdomen Exam: Positive: Normal bowel sounds, Soft; Negative: Tenderness, Hepatospenomegaly Extremity Exam: Negative: Cyanosis, Edema Skin Exam: Positive: Nl turgor and temperature; Negative: Breakdown, Lesion Neuro Exam: Positive: Normal Gait, Normal Speech, Normal Tone, Cranial Nerves 3-12 NL Psych Exam: Positive: Memory Intact, Oriented x 3 LABORATORY DATA: Please see below. ACTIVITY: [As tolerated]. DIET: As tolerated DISCHARGE PLAN: Home DISPOSITION: . DISCHARGE INSTRUCTIONS: PMD in [address] Oseguera in 2 to 3 weeks Referral given to palliative care and to hospice. DISCHARGE CONDITION: [Stable]. TIME SPENT ON DISCHARGE: 35 minutes. Vital Signs/I&Os Vital Signs Date Time Temp Pulse Resp B/P (MAP) Pulse Ox O2 Delivery O2 Flow Rate FiO2 08/16/19 08:00 2.0 08/16/19 06:00 96.9 91 21 112/70 (84) 97 Nasal Cannula I&O- Last 24 Hours up to 6 AM 08/16/19 05:59 Intake Total 1930 ml Output Total 550 ml Balance 1380 ml Laboratory Data Labs 24H Laboratory Tests 2 08/16/19 05:34: Immature Granulocyte % (Auto) 0.7, Neutrophils (%) (Auto) 93.3H, Lymphocytes (%) (Auto) 3.8L, Monocytes (%) (Auto) 2.1, Eosinophils (%) (Auto) 0.0, Basophils (%) (Auto) 0.1, Neutrophils # (Auto) 10.5H, Lymphocytes # (Auto) 0.4L, Monocytes # (Auto) 0.2, Eosinophils # (Auto) 0.0, Basophils # (Auto) 0.0, Nucleated Red Blood Cells % (auto) 0.0, Anion Gap 6L, Glomerular Filtration Rate > 60.0, Calcium Level 8.7 CBC/BMP Laboratory Tests 08/16/19 05:34 Microbiology Microbiology 08/13/19 Blood Culture - Preliminary, Resulted No Growth after 48 hours. All Specime... 08/13/19 Blood Culture - Preliminary, Resulted No Growth after 48 hours. All Specime... Discharge Medications Scheduled Aspirin (Aspirin) 325 Mg Tablet, 325 MG PO DAILY, (Reported) Azithromycin (Azithromycin) 250 Mg Tablet, 500 MG PO QHS Calcium Carbonate/Vitamin D3 (Calcium 600-Vit D3 400 Tablet) 1 Each Tablet, 1 TA B PO DAILY, (Reported) Diclofenac Epolamine (Diclofenac Epolamine) 1 Each Patch.td12, 1 PATCH TOP Q12H Fluticasone Furoate (Arnuity Ellipta) 200 Mcg Blst.w.dev, 1 PUFF INH DAILY, (Reported) Ipratropium/Albuterol Sulfate (Iprat-Albut 0.5-3(2.5) mg/3 ml) 3 Ml Ampul.neb, 1 VIAL NEB TID Nicotine (Nicotine Patch) 14 Mg/24 Hr Patch.td24, 14 MG TD DAILY, (Reported) Prednisone (Prednisone) 10 Mg Tablet, 10 MG PO TAPER Take 4 tabs daily x 3 days, then 3 tabs daily x 3 days, then 2 tabs daily x 3 days, then 1 tab daily x 3 days and stop Umeclidinium Brm/Vilanterol Tr (Anoro Ellipta 62.5-25 Mcg INH) 1 Each Blst.w.dev, 1 PUFF INH DAILY, (Reported) Scheduled PRN Benzocaine/Menthol (Sore Throat Lozenge) 1 Each Lozenge, 1 SOFIE PO Q4HP PRN for COUGH Allergies Coded Allergies: Sulfa (Sulfonamide Antibiotics) (Verified Adverse Reaction, Intermediate, VOMITING, 08/13/19) JOHNATHON DYER MD Aug 16, 2019 11:37
== END 2019-08-16 11:42 | disposition home or self-care (01) | DRG 189 ==
LOC: M ED 15:28 → EDBD 15:28 → M ED INP 17:31 → ENRESERV 17:49 → M PCU 18:33 → M MSPAV 08-15 00:55
PROVIDERS: ADMIT Internal Medicine Nephrology; ATTEND Internal Medicine Nephrology
DX: J96.22 Acute and chronic respiratory failure with hypercapnia (principal); J44.1 Chronic obstructive pulmonary disease with (acute) exacerbation; R00.0 Tachycardia, unspecified; M81.0 Age-related osteoporosis without current pathological fracture; F17.200 Nicotine dependence, unspecified, uncomplicated; Z66 Do not resuscitate; Z88.2 Allergy status to sulfonamides; Z79.82 Long term (current) use of aspirin; Z79.899 Other long term (current) drug therapy